=== PATIENT | female | born 1965 | race African-American/Black ===

== ENCOUNTER 2016-10-11 09:16 | Emergency (ER) | payer OTHER ==
[~2016-10-11] VITALS: Ht 157.5 cm; Wt 97.5 kg
[~2016-10-11 09:16] MED LIST: BENTYL20 MG PO; PREDNISONE 20MG20 MG PO; TRAMADOL50 MG PO; ZOFRAN4 M1 SL
[2016-10-11 10:21] LABS: ABSOLUTE BASOPHIL COUNT 0 /CUMM (0.0-0.2); ABSOLUTE EOSINOPHIL COUNT 0.2 /CUMM (0.0-0.7); ABSOLUTE LYMPH COUNT 2.5 /CUMM (1.2-3.4); ABSOLUTE MONOCYTE COUNT 0.3 /CUMM (0.10-0.60); BASOPHIL % 0.6 % (0.0-2.0); EOSINOPHIL % 2.8 % (0-5); GRANULOCYTE % 50.1 % (42.2-75.2); HEMATOCRIT 42.8 % (37-47); MEAN CORPUSCULAR HGB 28.4 PG (27.0-31.0); MEAN CORPUSCULAR HGB CONC 33.4 G/DL (33.0-37.0); MEAN CORPUSCULAR VOLUME 84.9 FL (81.0-99.0); MEAN PLATELET VOLUME 9.1 FL (7.4-10.4); PLATELET COUNT 230 /CUMM (130-400); RED BLOOD CELL CT 5.04 /CUMM (4.20-5.40); WHITE BLOOD CELL COUNT 5.9 /CUMM (4.8-10.8)
[2016-10-11] MEDS ORDERED: ULTRAM50 M1 PO (10:53)
[2016-10-11] MEDS ORDERED: IBUPROFEN600 M1 PO (10:53)
[2016-10-11] MEDS ORDERED: BACLOFEN10 M1 PO (10:53)
--- NOTE | 2016-10-11 11:04 | ED NECK/BACK PAIN COMPLAINT ---
History of Present Illness General Chief Complaint: Low Back Pain/Injury Stated Complaint: CHRONIC BACK PAIN; UNVOLUNTARY HAND MOVEMENTS Source: patient, old records, friend Exam Limitations: no limitations Vital Signs & Intake/Output Vital Signs & Intake/Output Vital Signs Date Time Temp Pulse Resp B/P Pulse O2 O2 Flow FiO2 Ox Delivery Rate 10/11 1125 85 128/88 10/11 0923 98.3 87 20 135/96 97 Room Air Room Air Allergies Coded Allergies: Penicillins (Severe, SWELLING 12/24/15) Reconcile Medications Baclofen 10 MG TABLET 1 TAB PO TIDPRN PRN muscle spasm/strain Dicyclomine Hydrochloride (Bentyl) 20 MG TAB 1 TAB PO 4 TIMES/DAY PRN CRAMPING Ibuprofen 600 MG TABLET 1 TAB PO Q6PRN PRN pain with food Ondansetron (Zofran Odt) 4 MG ODT 1 TAB SL Q8HR PRN NAUSEA Prednisone 20 MG TABLET 3 TAB PO DAILY LAYNGITIS TRAMADOL HCL (Tramadol) 50 MG TAB 1 TAB PO Q6P PRN pain Tramadol HCl (Ultram) 50 MG TABLET 1-2 TAB PO Q6PRN PRN severe pain Triage Note: PT TO ED WITH C/O LOW BACK PAIN, FOR SEVERAL MONTHS, TOOK ALEVE THIS AM WITH MINIMAL EFFECT, PAIN INCREASES WITH POSITION CHANGE. NO KNOWN FALL OR HEAVY LIFTING. Triage Nurses Notes Reviewed? yes Onset: Last week Duration: day(s):, continues in ED, waxing and waning Timing: recent history Quality/Severity: moderate Location: lumbar spine, paraspinous muscles Radiation: buttocks Context: turning/bending Method of Injury: unknown Loss of Consciousness: no loss of consciousness Modifying Factors: immobilization, movement, rest Associated Symptoms: lower back pain, muscle spasm LMP (ages 10-50): unknown : No Patient currently breastfeeds: No HPI: 1 week prior to admission patient complains of left low back pain described as achy and worse with twisting and bending nonradiating resolving after couple days. Morning of admission patient complains of recurrent left low back pain radiating to her buttocks. She also complains of having involuntary twitching of her hands. She denies fever chills nausea vomiting diarrhea abdominal pain chest pain shortness of breath headache dysuria rash bleeding change in motor sensory function change in bowel bladder habit. Past History Travel History Traveled to [place] past 21 day No Medical History Any Pertinent Medical History? 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 No Review of Systems Review of Systems Constitutional: Reports: no symptoms. Eyes: Reports: no symptoms. Ears, Nose, Throat, Mouth: Reports: no symptoms. Respiratory: Reports: no symptoms. Cardiovascular: Reports: no symptoms. Gastrointestinal/Abdominal: Reports: no symptoms. Musculoskeletal: Reports: see HPI, back pain. Skin: Reports: no symptoms. Neurological/Psychological: Reports: no symptoms. All Other Systems: Reviewed and Negative Physical Exam Physical Exam General Appearance: well developed/nourished, mild distress Head: atraumatic Eyes: Bilateral: PERRL, EOMI. Ears, Nose, Throat, Mouth: hearing grossly normal Neck: normal inspection, supple, full range of motion, normal alignment Respiratory: normal breath sounds Cardiovascular: regular rate/rhythm Peripheral Pulses: 4+ carotid (R), 4+ carotid (L), 2+ radial (R), 2+ radial (L) Gastrointestinal: normal bowel sounds, soft, non-tender, no organomegaly Back: normal inspection, decreased range of motion, muscle spasm, no vertebral tenderness Extremities: normal range of motion Straight Leg Raising: Right: Negative. Left: Negative. Sensory: Medial Le: L4R, L4L. Top of Foot: 2: L5R, L5L. Sole of Foot: 2: SIR, GEOVANY. Motor: Deficit L4 Right: No Deficit L4 Left: No Deficit L5 Right: No Deficit L5 Left: No Deficit S1 Right: No Deficit S1 Right: No Walk on Heels: 5: L4 Left, L4 Right. Ext. Big Toe: 5: L5 Left, L5 Right. DTR: Deficit L4 Left: No Deficit L4 Right: No Deficit S1 Left: No Deficit S1 Right: No Patellar: 3: L4 Right, L4 Left. Neurologic/Psych: awake, alert, oriented x 3, normal mood/affect Skin: intact, normal color, warm/dry Progress Differential Diagnosis: myofascial strain, sciatica Plan of Care: Orders Procedure Date/time Status URINALYSIS 10/11 952 Complete MAGNESIUM 10/11 952 Complete COMPREHENSIVE METABOLIC PANEL 10/11 952 Complete CBC WITHOUT DIFFERENTIAL 10/11 952 Complete Laboratory Tests 10/11/16 1030: Urinalysis LIGHT H, Urine Color YEL, Urine Clarity CLEAR, Urine pH 6.0, Ur Specific [place] 1.025, Urine Protein TRACE H, Urine Ketones TRACE H, Urine Nitrite NEG, Urine Bilirubin NEG@ICTO, Urine Urobilinogen 0.2, Ur Leukocyte Esterase NEG, Ur Microscopic SEDIMENT EXAMINED, Urine RBC RARE, Urine WBC 1-3 H , Ur Epithelial Cells OCCAS, Urine Mucus MOD H, Urine Hemoglobin NEG, Urine Glucose NEG 10/11/16 1010: Anion Gap 9, Estimated GFR > 60, BUN/Creatinine Ratio 20.0, Glucose 99, Calcium 9.6, Magnesium 1.8, Total Bilirubin 0.5, AST 15, ALT 28, Alkaline Phosphatase 101, Total Protein 8.0, Albumin 4.4, Globulin 3.6, Albumin/Globulin Ratio 1.2, CBC w Diff NO MAN DIFF REQ, RBC 5.04, MCV 84.9, MCH 28.4, RDW 16.0 H, MPV 9.1, Gran % 50.1, Lymphocytes % 41.5, Monocytes % 5.0, Eosinophils % 2.8, Basophils % 0.6, Absolute Granulocytes 3.0, Absolute Lymphocytes 2.5, Absolute Monocytes 0.3 , Absolute Eosinophils 0.2, Absolute Basophils 0, PUBS MCHC 33.4 Departure Departure Time of Disposition: 1051 Disposition: HOME OR SELF CARE Condition: Stable Clinical Impression Primary Impression: Strain of lumbar paraspinal muscle Qualifiers: Encounter type: initial encounter Qualified Code: S39.012A - Strain of muscle, fascia and tendon of lower back, initial encounter Referrals: МАРИЯ JOHNSON MD (PCP/Family) Departure Forms: Customer Survey General Discharge Information Prescriptions: Current Visit Scripts Ibuprofen 1 TAB PO Q6PRN PRN pain #50 TAB with food Baclofen 1 TAB PO TIDPRN PRN muscle spasm/strain #30 TAB Tramadol HCl (Ultram) 1-2 TAB PO Q6PRN PRN severe pain #30 TAB
[2016-10-11 11:25] VITALS: BP 128/88
== END 2016-10-11 11:26 ==
LOC: ERH 09:16
PROVIDERS: Emergency Medicine
DX: S39.012A Strain of muscle, fascia and tendon of lower back, initial encounter (principal)
CPT/HCPCS: 81001

== ENCOUNTER 2017-12-13 18:09 | Emergency (ER) | payer OTHER ==
[~2017-12-13] VITALS: Ht 157.5 cm; Wt 97.5 kg
[~2017-12-13 18:09] MED LIST changes: +AMLODOPINE; +BACLOFEN10 M1 PO; +IBUPROFEN600 M1 PO; +IBUPROFEN800 M1 PO; +LOSARTAN; +PANTOPRAZOLE SO40 M1 PO; +PROAIR HFA8.5 GM INH; +PROTONIX40 M3 PO; +SYMBICORT 16010.2 GM INH; +ULTRAM50 M1 PO; +VITAMIN D2000 UNIT PO
--- NOTE | 2017-12-13 19:16 | RADIOLOGY REPORT ---
EXAMINATION: XR CHEST CLINICAL INFORMATION: Cough and chest pain. COMPARISON: Chest x-ray from 10/10/2017. TECHNIQUE: 2 views of the chest were obtained. FINDINGS: No airspace opacities or pleural effusions are seen. The cardiomediastinal silhouette is unchanged. No acute osseous abnormality is evident. Anterior endplate spurring is noted in the lower thoracic spine. IMPRESSION: Clear lungs. No acute process.
[2017-12-13 19:45] LABS: ABSOLUTE BASOPHIL COUNT 0 /CUMM (0.0-0.2); ABSOLUTE EOSINOPHIL COUNT 0.3 /CUMM (0.0-0.7); ABSOLUTE LYMPH COUNT 2.6 /CUMM (1.2-3.4); ABSOLUTE MONOCYTE COUNT 0.2 /CUMM (0.10-0.60); BASOPHIL % 0.5 % (0.0-2.0); EOSINOPHIL % 4.3 % (0-5); GRANULOCYTE % 48.6 % (42.2-75.2); HEMATOCRIT 44.6 % (37-47); MEAN CORPUSCULAR HGB 28.7 PG (27.0-31.0); MEAN PLATELET VOLUME 9.4 FL (7.4-10.4); PLATELET COUNT 231 /CUMM (130-400); RBC DISTRIBUTION WIDTH 15.8 % (11.5-14.5); RED BLOOD CELL CT 5.13 /CUMM (4.20-5.40); WHITE BLOOD CELL COUNT 6.1 /CUMM (4.8-10.8)
--- NOTE | 2017-12-13 20:31 | ED CARDIAC/CP/PALPITATIONS ---
History of Present Illness General Chief Complaint: Chest Pain Stated Complaint: CHEST PAIN/SOB Source: patient, family, old records Exam Limitations: no limitations Vital Signs & Intake/Output Vital Signs & Intake/Output Vital Signs Date Time Temp Pulse Resp B/P B/P Pulse O2 O2 Flow FiO2 Mean Ox Delivery Rate 12/13 2124 96.6 78 18 152/86 95 Room Air 12/13 1847 155/104 12/13 1844 98.7 87 18 168/112 96 Room Air Allergies Coded Allergies: Penicillins (Severe, FACIAL SWELLING 04/26/17) Reconcile Medications Albuterol Sulfate (Proair Hfa) 90 MCG HFA.AER.AD 2 PUF INH Q4-6 PRN PRN ASTHMA (Reported) [AMLODOPINE] HTN (Reported) Budesonide/Formoterol Fumarate (Symbicort 160-4.5 Mcg Inhaler) 160 MCG-4.5 MCG/ ACTUATION HFA.AER.AD 2 PUF INH BID PRN ASTHMA (Reported) Cholecalciferol (Vitamin D3) (Vitamin D) 2,000 UNIT CAPSULE 1 CAP PO DAILY VITAMIN SUPPORT (Reported) Ibuprofen 800 MG TABLET 1 TAB PO TID PRN pain [LOSARTAN] HTN (Reported) Pantoprazole Sodium 40 MG TABLET.DR 1 TAB PO DAILY ACID REFLUX (Reported) Pantoprazole Sodium (Protonix) 40 MG TABLET.DR 1 TAB PO DAILY GERD (Reported) Triage Note: RECEIVED 52 YO FEMALE C/O CHEST TIGHTNESS STARTED LAST NIGHT INTERMITTENTLY WITH SHORTNESS OF BREATH. PT WITH HX OF ACID REFLUX AND HTN, TOOK GI MEDS WITHOUT ANY HELP. Triage Nurses Notes Reviewed? yes Duration: hour(s):, constant, continues in ED Timing: recent history Quality/Severity: moderate, aching, tightness Location: central, epigastric Radiation: no radiation Activities at Onset: rest Prior Chest Pain/Card Workup: no prior cardiac workup Nitro Today/Relief: no nitro taken today Aspirin Today: no aspirin today Associated Symptoms: dizziness, shortness of breath, nausea/vomiting LMP (ages 10-50): unknown : No Patient currently breastfeeds: No HPI: 1 day prior to admission patient complains of epigastric/substernal chest tightness associated with nausea dizziness wheezing. She denies fever chills vomiting diarrhea headache dysuria rash bleeding . Past History Travel History Traveled to [place] past 21 day No Medical History Any Pertinent Medical History? 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 No Review of Systems Review of Systems Constitutional: Reports: see HPI, malaise. EENTM: Reports: no symptoms. Respiratory: Reports: see HPI, wheezing. Cardiovascular: Reports: see HPI, chest pain. GI: Reports: see HPI, nausea. Genitourinary: Reports: no symptoms. Musculoskeletal: Reports: no symptoms. Skin: Reports: no symptoms. Neurological/Psychological: Reports: no symptoms. Hematologic/Endocrine: Reports: no symptoms. Immunologic/Allergic: Reports: no symptoms. All Other Systems: Reviewed and Negative Physical Exam Physical Exam General Appearance: well developed/nourished, alert, awake, anxious, mild distress, obese Head: atraumatic, normal appearance Eyes: Bilateral: normal appearance, PERRL, EOMI. Ears, Nose, Throat: normal pharynx, normal ENT inspection, hearing grossly normal Neck: normal inspection, supple, full range of motion, no midline tenderness Respiratory: chest non-tender, no respiratory distress, quiet respiration, decreased breath sounds Cardiovascular: regular rate/rhythm, normal peripheral pulses, norml femoral pulses equa Peripheral Pulses: 4+ carotid (R), 4+ carotid (L) Gastrointestinal: normal bowel sounds, soft, non-tender, no organomegaly Back: normal inspection, normal range of motion, no vertebral tenderness Extremities: normal inspection, normal capillary refill, normal range of motion, no edema Neurologic/Psych: no motor/sensory deficits, awake, alert, oriented x 3, normal gait, normal mood/affect, 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 Skin: intact, normal color, warm/dry Core Measures ACS in differential dx? No CVA/TIA Diagnosis No Sepsis Present: No Sepsis Focused Exam Completed? No Progress Differential Diagnosis: costochondritis, hypovolemia, musculoskeletal pain, pancreatitis, pneumonia Plan of Care: Orders Procedure Date/time Status Telemetry/Insurance Loss Adjuster 12/13 1845 Active TROPONIN LEVEL 12/13 1845 Complete PARTIAL THROMBOPLASTIN TIME 12/13 1845 Complete PROTHROMBIN TIME 12/13 1845 Complete LIPASE 12/13 1845 Complete D-DIMER 12/13 1845 Complete COMPREHENSIVE METABOLIC PANEL 12/13 1845 Complete CBC WITHOUT DIFFERENTIAL 12/13 1845 Complete B-TYPE NATRIURETIC PEP (BNP) 12/13 1845 Complete AMYLASE 12/13 1845 Complete EKG 12/13 180 Active Current Medications Sig/Mitzy Start time Last Medication Dose Stop Time Status Admin Ketorolac 30 MG ONCE ONE 12/13 1944 CAN Tromethamine 12/13 1945 (Toradol) Laboratory Tests 12/13/171930: Anion Gap 13, Estimated GFR > 60, BUN/Creatinine Ratio 20.0, Glucose 101 H, Calcium 10.2, Total Bilirubin 0.4, AST 14, ALT 26, Alkaline Phosphatase 104, Troponin I < 0.01, Ilm-C-Dwziqrbdcrf Pept 105, Total Protein 8.1, Albumin 4.4, Globulin 3.7, Albumin/Globulin Ratio 1.2, Amylase 97, Lipase 295, CBC w Diff NO MAN DIFF REQ, RBC 5.13, MCV 87.0, MCH 28.7, MCHC 33.0, RDW 15.8 H, MPV 9.4, Gran % 48.6, Lymphocytes % 42.9, Monocytes % 3.7, Eosinophils % 4.3, Basophils % 0.5, Absolute Granulocytes 3.0, Absolute Lymphocytes 2.6, Absolute Monocytes 0.2 , Absolute Eosinophils 0.3, Absolute Basophils 0 12/13/171845: PT 10.9, INR 1.00, APTT 36, D-Dimer High Sensitivty < 200 Diagnostic Imaging: Viewed by Me: Radiology Read. Discussed w/RAD: Radiology Read. CXR Impression: no acute abnormality, no infiltrates Initial ED EKG: normal axis, normal intervals, normal p-waves, normal QRS complex, normal sinus rhythm, no ST T wave changes Prior EKG: unchanged Rhythm Strip: normal sinus rhythm Departure Departure Time of Disposition: 2140 Disposition: HOME OR SELF CARE Condition: Stable Clinical Impression Primary Impression: Chest pain syndrome Secondary Impressions: Asthma exacerbation Referrals: Mady THOMPSON,Mady (PCP/Family) Departure Forms: Customer Survey General Discharge Information Prescriptions: Current Visit Scripts Prednisone 1 TAB PO BID #10 TAB Albuterol Sulfate (Proair Hfa) 2 PUF INH Q4-6 PRN PRN asthma #1 INHAL Critical Care Note Critical Care Note Critical Care Time: non-applicable
[2017-12-13 20:33] LABS: PT 10.9 SEC (9.4-12.5); PTT 36 SEC (25-37)
[2017-12-13 21:25] VITALS: BP 152/86
[2017-12-13] MEDS ORDERED: PREDNISONE20 M1 PO (21:42)
[2017-12-13] MEDS ORDERED: PROAIR HFA8.5 GM INH (21:42)
== END 2017-12-13 21:48 ==
LOC: ERH 18:09
PROVIDERS: Physician Assistant
DX: J45.901 Unspecified asthma with (acute) exacerbation (principal); R07.89 Other chest pain
CPT/HCPCS: 1263; 71046; 93005; 93010; 96374; 96375; J0131; J2765; J2930; J7040